=== PATIENT | female | born 1950 | race Caucasian/White ===

== ENCOUNTER 2022-10-15 14:19 | Emergency (ER) | payer MEDICARE, OTHER ==
[~2022-10-15] VITALS: Ht 167.6 cm; Wt 96.6 kg
[2022-10-15] MEDS ORDERED: OMEP-173 (14:34)
[2022-10-15] MEDS ORDERED: LINZ290C (14:34)
[2022-10-15] MEDS ORDERED: CEPH500C (14:34)
[2022-10-15] MEDS ORDERED: FLUO20CA22 (14:34)
[2022-10-15 15:38] LABS: BASO % 0.7 % (0.0-1.0); EOS # 0.2 10^3/uL (0.0-0.5); EOS % 3.3 % (0.0-3.0); HEMATOCRIT 33.5 % (36.0-47.0); HEMOGLOBIN 11.4 g/dl (12.0-15.5); LYMPH # 1.6 10^3/uL (1.5-5.0); LYMPH % 26.2 % (24.0-44.0); MEAN CORPUSCULAR HEMOGLOBIN 30.3 pg (27.0-33.0); MEAN CORPUSCULAR VOLUME 89.1 fl (80.0-96.0); MONO # 0.5 10^3/uL (0.0-0.8); MONO % 7.7 % (2.0-8.0); NEUTROPHILS # 3.8 10^3/uL (1.5-8.5); NEUTROPHILS % 61.8 % (36.0-66.0); PLATELET COUNT, AUTOMATED 241 10^3/uL (150-450); RED BLOOD COUNT 3.76 10^6/uL (4.00-5.40); WHITE BLOOD COUNT 6.1 10^3/uL (4.0-10.0)
[2022-10-15 15:51] LABS: C REACTIVE PROTEIN QUANTITATIV < 0.40 MG/DL (<1.0)
[2022-10-15 15:53] LABS: BLOOD UREA NITROGEN 13 MG/DL (9-23); CALCIUM LEVEL 8.8 MG/DL (8.3-10.6); CARBON DIOXIDE LEVEL 27 MMOL/L (20-31); CHLORIDE LEVEL 100 MMOL/L (98-107); CREATININE FOR GFR 0.81 MG/DL (0.55-1.30); GLOMERULAR FILTRATION RATE > 60.0 (>39); GLUCOSE, FASTING 92 MG/DL (74-106); POTASSIUM SERUM 4.5 MMOL/L (3.5-5.1); SODIUM LEVEL 133 MMOL/L (136-145)
[2022-10-15 15:57] LABS: ERYTHROCYTE SEDIMENTATION RATE 7 mm/hr (0-30)
[2022-10-15] MEDS ORDERED: CLINDAMYCIN 900 MG in IV 1 EA IV ONE (17:00)
[2022-10-15] MEDS ORDERED: KETOROLAC 30 MG/ML 1ML VIAL IV ONE (17:00)
[2022-10-15] MEDS ORDERED: CLEO300C2 PO (18:33)
[2022-10-15] MEDS ORDERED: IBUP-1022 PO (18:36)
[2022-10-15 20:43] LABS: CK-MB VALUE MASS < 1.0 NG/ML (<3.6)
[2022-10-15 20:48] LABS: CPK CREATINE PHOSPHOKINASE 118 U/L (34-145); MB/CK RELATIVE INDEX 0.84 (< OR =4)
[2022-10-15] MEDS: NITROGLYCERIN 0.3MG SUBL TAB SL PRN ×3 (20:52→21:03)
[2022-10-15 21:03] VITALS: BP 218/102
[2022-10-15] MEDS ORDERED: LORazepam 2 MG/ML 1ML VIAL IV STA (21:13)
[2022-10-15 21:22] LABS: CK-MB VALUE MASS < 1.0 NG/ML (<3.6)
[2022-10-15 21:23] LABS: CPK CREATINE PHOSPHOKINASE 115 U/L (34-145); MB/CK RELATIVE INDEX 0.86 (< OR =4)
[2022-10-15] MEDS ORDERED: ACETAMINOPHEN 500 MG TAB PO ONE (22:00)
[2022-10-15 23:00] VITALS: BP 184/88
== END 2022-10-15 23:11 | disposition home or self-care (01) ==
LOC: M ED 14:19
DX: L03.011 Cellulitis of right finger (principal); R07.89 Other chest pain; I45.81 Long QT syndrome; Z88.5 Allergy status to narcotic agent
CPT/HCPCS: 70450; 71045; 73140; 80048; 81001; 82550; 82553; 84484; 85025; 85652; 86140; 87040; 93005; 93041; 96365; 96375; 99285; J1885; J2060

== ENCOUNTER 2022-10-28 08:18 | Day surgery (SDC) | payer MEDICARE, BC, OTHER ==
[~2022-10-28] VITALS: Ht 167.6 cm; Wt 95.7 kg
[~2022-10-28 08:18] MED LIST: CEPH500C; CLEO300C2 PO; CVS1CAP2 PO; CYCL5TAB PO; FLUO20CA22 PO; GING250C PO; HYDR-3363 PO; IBUP-1022 PO; LINZ290C PO; OMEG10005 PO; OMEP-173 PO; RA M500C PO; VITATAB73 PO; [UNRECOGNIZED DRUG - OTHER] PO; tumeric PO
[2022-10-28] MEDS ORDERED: BACITRACIN OINTMENT 30GM TUBE As Ordered ONE (09:55)
[2022-10-28] MEDS ORDERED: BUPIVACAINE HCL 0.25% 30ML VIAL As Ordered ONE (09:55)
[2022-10-28] MEDS ORDERED: LIDOCAINE 1% SDV 30ML VIAL As Ordered ONE (10:00)
[2022-10-28] MEDS ORDERED: SODIUM BICARBONATE 4.2% INJ 10ML SYRINGE As Ordered ONE (10:00)
[2022-10-28] MEDS ORDERED: ONDANSETRON 4MG 2ML VIAL As Ordered ONE (10:23)
[2022-10-28] MEDS ORDERED: KETOROLAC 60MG 2ML VIAL As Ordered ONE (10:23)
[2022-10-28] MEDS ORDERED: LIDOCAINE 2% 100MG/5ML SDV (FOR ANES.) As Ordered ONE (10:23)
[2022-10-28] MEDS ORDERED: MIDAZOLAM INJ 2MG/2ML VIAL As Ordered ONE (10:23)
[2022-10-28] MEDS ORDERED: ACETAMINOPHEN 1000MG 100ML IV BAG As Ordered ONE (10:23)
[2022-10-28] MEDS ORDERED: fentaNYL 100 MCG/2 ML INJECTION As Ordered ONE (10:23)
[2022-10-28] MEDS ORDERED: propofoL 200 MG/20 ML VIAL As Ordered ONE (10:23)
[2022-10-28] MEDS ORDERED: PERC5TAB12 PO (10:57)
[2022-10-28 11:45] VITALS: BP 142/92
== END 2022-10-28 11:50 | disposition home or self-care (01) ==
LOC: M SDC 08:18
PROVIDERS: ATTEND Orthopaedic Surgery Hand Surgery
DX: L98.6 Other infiltrative disorders of the skin and subcutaneous tissue (principal); K76.0 Fatty (change of) liver, not elsewhere classified; K57.90 Diverticulosis of intestine, part unspecified, without perforation or abscess without bleeding; F32.A Depression, unspecified; K59.00 Constipation, unspecified; Z86.73 Personal history of transient ischemic attack (TIA), and cerebral infarction without residual deficits; Z79.899 Other long term (current) drug therapy; G47.33 Obstructive sleep apnea (adult) (pediatric); Z88.5 Allergy status to narcotic agent; Z88.1 Allergy status to other antibiotic agents
CPT/HCPCS: 11755; 87070; 87075; 87077; 87102; 87186; 88304; J0131; J1100; J1885; J2250; J2405; J3010

== ENCOUNTER → 2023-03-13 | Outpatient (CLI) | payer MEDICARE, BC, OTHER ==
[~2023-03-13] MED LIST changes: +PERC5TAB12 PO
[2023-03-13 13:51] LABS: BLOOD UREA NITROGEN 11 MG/DL (9-23); CREATININE FOR GFR 0.81 MG/DL (0.55-1.30); GLOMERULAR FILTRATION RATE > 60.0 (>39)
== END ==
LOC: M PLALAB 11:38
PROVIDERS: ATTEND Orthopaedic Surgery Orthopaedic Surgery of the Spine
DX: M54.50 Low back pain, unspecified (principal)

== ENCOUNTER → 2023-04-01 | Outpatient (CLI) | payer MEDICARE, BC, OTHER ==
[~2023-04-01] MED LIST changes: +PROHANCE 279.3MG/ML 15ML VIAL ONE; +PROHANCE 279.3MG/ML 5ML VIAL ONE
== END ==
LOC: M PLAIMG 09:30
PROVIDERS: ATTEND Orthopaedic Surgery Orthopaedic Surgery of the Spine
DX: M51.26 Other intervertebral disc displacement, lumbar region (principal); M47.816 Spondylosis without myelopathy or radiculopathy, lumbar region; M48.061 Spinal stenosis, lumbar region without neurogenic claudication
CPT/HCPCS: 72158; A9576